=== PATIENT | female | born 1975 | race Caucasian/White ===

== ENCOUNTER 2017-07-10 08:00 | Inpatient (IN) ==
[2017-07-10] MEDS ORDERED: Famotidine 20 MG/2 ML VIAL IVP PRN ×2 (08:18→08:21)
[2017-07-10] MEDS ORDERED: Naloxone 0.4 MG/ML INJ IVP PRN ×2 (08:18→08:21)
[2017-07-10] MEDS ORDERED: Ondansetron 4 MG/2 ML VIAL IVP PRN (08:21)
[2017-07-10] MEDS ORDERED: *HR* Nalbuphine 20 MG/ML AMPUL IVP PRN (08:21)
--- NOTE | 2017-07-10 08:35 | OB/GYN History & Physical ---
Date of Encounter: 07/10/17 Time of Encounter: 08:25 Assessment and Plan (1) and not yet delivered in third trimester Current visit: Yes Status: Acute (2) 39 weeks gestation of Current visit: Yes Status: Acute (3) Advanced maternal age (AMA), 40 years or greater Current visit: Yes Status: Acute (4) Gestational hypertension Current visit: Yes Status: Acute Order PIH labs Qualifiers: Trimester: third trimester Qualified Code(s): O13.3 - Gestational [ -induced] hypertension without significant proteinuria, third trimester (5) Gestational diabetes mellitus (GDM) controlled on oral hypoglycemic drug Current visit: Yes Status: Acute Qualifiers: Trimester: third trimester Qualified Code(s): O24.415 - Gestational diabetes mellitus in , controlled by oral hypoglycemic drugs (6) Elective induction of labor planned Current visit: Yes Status: Acute We will induce with the Leo catheter and vaginal Cytotec plan is to anticipate vaginal delivery History of Present Illness HPI: Ms. Kitchen is a 41 year old female 3 para 1011 at 39-2/7 weeks by last menstrual period equal to a 9-3/7 week ultrasound who presented for induction of labor secondary to term with advanced maternal age and gestational hypertension and gestational diabetes. Patient had an abnormal 3 hour Glucola and has been on a diabetic diet and was started on metformin at that time due to elevated fastings. Since starting the medication her blood sugars have been more stable. Patient is beginning twice a week NSTs are reactive with no contractions. Lastly patient blood pressure was noted to be elevated we did do PIH labs those were within normal limits. She was asymptomatic at that time. Did inform her once we got it to term did go ahead and deliver her due to the advanced maternal age diabetes and now gestational hypertension. She denies any leaking of fluid, having good movement not feeling any contractions. Patient has been doing home blood pressures have been stable and her blood sugars have been stable fasting this morning was 88. Patient is Rh+, rubella positive, GBS negative Past Med Surg Social Fam HX - Past Medical History Source: patient, obtained from family Medical history: kidney stones, other (Gestational diabetes) Psychiatric history: no psych history - Past Surgical History Surgical History: other (Lithotripsy, stent in kidney, suction dilatation curettage) - Social History Smoking Status: Never smoker Smokeless Tobacco Status: No Alcohol use: none Drug use: none Occupational status: employed Current living situation: Home - Independent Activity Level: Independent ambulation Recent Out of Country Travel Within the Last 8 Weeks: No Exposure or Possible Exposure to Illness During Travel: No - Additional Family History Additional family history: Family history noncontributory Obstetrical History - Pregnancies : 3 Para: 1 Term: 1 : 0 Ab's: 1 Livin Review of System OB All systems PM: reviewed and no additional remarkable complaints except as stated Exam - Constitutional Constitutional: well developed, well nourished, no acute distress, average body habitus - HEENT HEENT: EOMI, PERRL - Neck Neck exam: full ROM - Lungs Respiratory exam: CTAB - Cardiovascular Cardiovascular exam: RRR - Abdomen Abdomen: Present: bowel sounds normal, gravid - Extremities Extremities exam: calf tenderness Results All other labs normal. - VTE Reasons for not Prescribing Prophylaxis: Treatment not Indicated - Low risk for VTE
[2017-07-10 08:46] LABS: Basophils % 0.2 %; Eosinophils % 0.4 %; Hematocrit 35.3 % (35.3-44.9); Immature Granulocytes % 0.8 % (0-4); Lymphocytes # 1.2 K/mcL (0.6-4.6); Lymphocytes % 13.7 %; Mean Corpuscular Hemoglobin 30.9 pg (28.0-33.3); Mean Platelet Volume 10.1 fL (9.4-12.4); Monocytes # 0.6 K/mcL (0.0-1.3); Monocytes % 6.3 %; Neutrophils # 7.1 K/mcL (1.6-8.9); Platelet Count 253 K/mcL (140-400); Red Blood Count 3.88 M/mcL (3.82-4.97); Red Cell Distribution Width 12.8 % (11.5-14.5); Segmented Neutrophils % 78.6 %
[2017-07-10 08:52] LABS: Amphetamine Screen,Urine Negative ng/mL (Cutoff=1000); Barbiturate Screen,Urine Negative ng/mL (Cutoff=200); Benzodiazepines Screen,Urine Negative ng/mL (Cutoff=200); Cannabinoid Screen,Urine Negative ng/mL (Cutoff = 50); Cocaine Screen,Urine Negative ng/mL (Cutoff= 300); Opiate Screen,Urine Negative ng/mL (Cutoff=300); Phencyclidine Screen,Urine Negative ng/mL (Cutoff=25)
[2017-07-10 08:59] LABS: Alanine Aminotransferase 14 Units/L (7-52); Aspartate Amino Transferase 13 Units/L (13-39); BUN/Creatinine Ratio 19 (6-26); Blood Urea Nitrogen 13 mg/dL (6-20); Lactate Dehydrogenase 125 Units/L (140-271); Uric Acid 3.6 mg/dL (2.3-7.6); eGFR For African Americans > 60 (> 60); eGFR For Non-African Americans > 60 (> 60)
[2017-07-10] MEDS ORDERED: miSOPROStol 25 MCG TABLET VG SCH ×2 (09:00→12:00)
[2017-07-10] MEDS: Ringers Solution, Lactated 1,000 ML IVC SCH ×2 (09:10→13:36)
--- NOTE | 2017-07-10 09:28 | OB Labor Progress Note ---
Date of Encounter: 07/10/17 Time of Encounter: 09:20 Labor Progress Note - Subjective Subjective: Patient still comfortable - Cervix Cervix: 2-3/80/-2 jensen catheter placed and 25 g Cytotec placed in the posterior fornix - Heart Tones Heart Tones: heart tones 140s reactive - Brigantine Brigantine: occ contractions noted - Plan Plan: Anticipate vaginal delivery
[2017-07-10] MEDS ORDERED: *HR* Ropivacaine/PF 0.2% 10 ML AMPUL ONE (12:55)
[2017-07-10] MEDS ORDERED: Epidural Premix (fent/bupiv) 110 ML EP ONE (12:55)
[2017-07-10] MEDS ORDERED: *HR* FentaNYL (PF) 100 MCG/2 ML VIAL ONE (12:57)
[2017-07-10] MEDS ORDERED: *HR* Ropivacaine/PF 0.2% 10 ML AMPUL EP ONE (13:33)
[2017-07-10] MEDS ORDERED: *HR* FentaNYL (PF) 100 MCG/2 ML VIAL EP ONE (13:33)
[2017-07-10] MEDS ORDERED: EPHEDrine 50 MG/ML VIAL IVP PRN (13:33)
--- NOTE | 2017-07-10 13:36 | Anesthesia Evaluation PreOp ---
Date of Encounter: 07/10/17 Time of Encounter: 13:34 - Past History Planned Operation: adrianne Cardiac History: Denies any Significant Hx Pulmonary History: Denies Any Significant HX GAMING MANAGER History: Denies Any Significant HX Other Medical History: Renal (lithiasis), Diabetes Type II (gestational) Anesthesia History: No Prior Anesthetic Complications, Past Anesthesia (renal lithiasis) : Yes (, 39 weeks) Alcohol Use: none Drug use: none Medications and Allergies 3 Allergy/AdvReac Type Severity Reaction Status Date / Time No Known Allergies Allergy Verified 07/10/17 08:56 - Meds/Allergy Pre-op Review Medications Reviewed: Yes Allergies Reviewed: Yes Beta Blockers on Current Med List: No Anesthesia Results - Labs 07/10/17 08:30 07/10/17 08:33 Anesthesia Exam O2 Sat Height 1.63 m Weight 77.7 kg 128/81 Height: 64 Weight: 77 - HEENT Pupil (Motor): Pupils equal Mallampati: II Teeth: Normal Oral Opening: Greater than 3 - GAMING MANAGER LOC: Oriented GAMING MANAGER Motor: Normal RUE, Normal LUE, Normal RLE, Normal LLE, Normal Face GAMING MANAGER Sensory: Normal: RUE, LUE, RLE, LLE, Face - Cardiac Rhythm: Regular Murmur: None JVD: No Carotid Bruit: No - Pulmonary Breath Sounds: bilateral Clear Respiratory Effort: Symmetrical Anesthesia Assess/Plan ASA Score: 2 Modified [place] Scale for Level of Consciousness: Cooperative, oriented, and tranquil Anesthetic Plan: Regional Monitoring Plan: Standard Monitors
--- NOTE | 2017-07-10 13:40 | Anesthesia Procedures ---
Date of Encounter: 07/10/17 Time of Encounter: 13:37 Procedures: Anesthesia - Epidural/Spinal Patient ID/Chart reviewed: Yes Patient examined: Yes OB Eval: Gestational age: 39 OB Eval: : 3 OB Eval: Hx Para: 1 OB Eval: Dilated at (cm): 4 OB Eval: Contractions: Non-stressed pattern Consent Obtained: Yes Supplemental Oxygen: None/Room Air Site Prep: Aseptic Technique Patient position: upright Local Anesthetic: Lidocaine 1% Amount of Local Anesthetic used: 2 Touhy Needle Gauge: 18 Touhy Needle Depth (cm): 4 Catheter Depth at Skin (cm): 10 Test Dose (1.5% Lido + Epi): Volume given (mls): 3 Test Dose Result: Negative Loading Dose: Fentanyl (mcg): 100 Loading Dose: Other: 6cc 0.2% ropivicaine, 2cc nss Loading Dose Administered: Thru Touhy Needle Infusion Med: 0.125% Bupivacaine w/ 2 mcg/ml Fentanyl Infusion Rate (mls/hr): [address]: Tegaderm Interspace Used: L3-L4 Loss of Resistance (SHANE): Yes Blood: No CSF: No Paresthesia: No
[2017-07-10] MEDS ORDERED: Epidural Premix (fent/bupiv) 110 ML EP SCH (13:45)
--- NOTE | 2017-07-10 13:56 | OB Labor Progress Note ---
Date of Encounter: 07/10/17 Time of Encounter: 13:50 Labor Progress Note - Subjective Subjective: Patient's very comfortable after her epidural - Cervix Cervix: 5/80/0 AROM clear fluid - Heart Tones Heart Tones: heart tones 140s reactive - Rayne Rayne: Contractions every 2 minutes - Plan Plan: Anticipate normal spontaneous vaginal delivery
[2017-07-10] MEDS ORDERED: Oxytocin 20 units/ LR 1000 mL 20 UNIT/1,000 ML BAG IVC ONE (17:01)
[2017-07-10] MEDS ORDERED: Oxytocin 20 units/ LR 1000 mL 20 UNIT/1,000 ML BAG IVC SCH ×2 (17:15→19:50)
--- NOTE | 2017-07-10 17:25 | OB/GYN Procedure Note ---
Delivery - Delivery Date: 07/10/17 Provider: Ravinder Balderas Intrapartum events: none Delivery induction: jensen, misoprostol Delivery augmentation: rupture of membranes Delivery monitor: external FHT, external uterine Anesthesia: epidural Estimated Blood Loss: 100 - Infant (s) A Delivery Date: 07/10/17 Delivery Time: 16:57 Presentation: vertex Position: JOSE Route of delivery: Gender: Female Viability: Viable Pounds: 6 Ounces: 10 Weight Gram: 3.015 kg at 1 minute: 8 at 5 mins: 9 Shoulder Dystocia: not encountered Specimens collected: cord blood Placenta: spontaneous Cord: nuchal cord, nuchal reduced - Repair Episiotomy: none Laceration Description: Perineal - 2nd Degree - Complications Delivery complications: none Delivery comments: Patient is a 41-year-old 3 para 1011 at 39-3/7 weeks she was brought in for induction of labor secondary to advanced maternal age, gestational hypertension, gestational diabetes. Patient was diagnosed as a gestational diabetic we had to start her on oral hypoglycemics to get her fastings under control. She has been getting twice weekly NSTs have all been reactive. Patient last week started have elevated blood pressures PIH labs were all normal and she was scheduled for an induction. Blood pressures at home have all been stable. She reported to labor and delivery where she was noted to be 2 -3 cm Jensen catheter was placed and Cytotec was placed vaginally. Jensen fell out within an hour she received an epidural she was artificially ruptured when she was 5 cm. Patient progressed rapidly within triage she was complete patient pushed approximately 15 minutes delivering a viable female in right occiput anterior presentation at 1657. There was a nuchal 1 loose and reduced, there was no meconium, infant was bulb suctioned on the abdomen. Apgars were 8 at 1 minute, 9 at 5 months, weight was 6 lbs. 10 oz. 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 She had a second-degree perineal laceration repaired with 3-0 Vicryl in usual fashion. Cervix and vagina was visualized intact. She will be observed 2 hours before being taken to the floor - Disposition Mom disposition: stable in LDR disposition: stable in LDR
[2017-07-10] MEDS ORDERED: *HR* HYDROcodone/Acet 5/325 mg TABLET PO PRN (19:50)
[2017-07-10] MEDS ORDERED: Measles/Mumps/Rubella Vacc 0.5 ML VIAL SQ PRN (19:50)
[2017-07-10] MEDS ORDERED: Acetaminophen 325 MG TABLET PO PRN (19:50)
[2017-07-11] MEDS: Ibuprofen 600 MG TABLET PO PRN ×2 (02:07→11:01)
[2017-07-11 07:47] LABS: Basophils % 0.3 %; Eosinophils # 0.1 K/mcL (0.0-0.6); Eosinophils % 0.7 %; Hematocrit 29.9 % (35.3-44.9); Immature Granulocytes % 0.8 % (0-4); Lymphocytes # 1.6 K/mcL (0.6-4.6); Lymphocytes % 15.5 %; Mean Corpuscular HGB Conc 34.8 g/dL (31.6-35.5); Mean Platelet Volume 10.4 fL (9.4-12.4); Monocytes # 0.6 K/mcL (0.0-1.3); Monocytes % 6.4 %; Neutrophils # 7.6 K/mcL (1.6-8.9); Platelet Count 217 K/mcL (140-400); Red Blood Count 3.25 M/mcL (3.82-4.97); Red Cell Distribution Width 12.9 % (11.5-14.5); Segmented Neutrophils % 76.3 %
[2017-07-11 08:03] LABS: Hemoglobin 10.4 g/dL (11.5-15.4)
--- NOTE | 2017-07-11 08:38 | Discharge Summary ---
Date of Encounter: 07/11/17 Time of Encounter: 09:20 - Discharge Diagnosis (1) 39 weeks gestation of Priority: Primary Status: Acute (2) Advanced maternal age (AMA), 40 years or greater Priority: Secondary Status: Acute (3) Gestational hypertension Priority: Secondary Status: Acute Qualifiers: Trimester: third trimester Qualified Code(s): O13.3 - Gestational [ -induced] hypertension without significant proteinuria, third trimester (4) Gestational diabetes mellitus (GDM) controlled on oral hypoglycemic drug Priority: Secondary Status: Acute Qualifiers: Trimester: third trimester Qualified Code(s): O24.415 - Gestational diabetes mellitus in , controlled by oral hypoglycemic drugs (5) Elective induction of labor planned Priority: Secondary Status: Acute (6) anemia Priority: Secondary Status: Acute - Discharge Medications Prescriptions: Acetaminophen [Tylenol] 650 mg PO Q6HR PRN #40 tablet PRN Reason: Mild Pain Ibuprofen [Motrin] 600 mg PO Q6HR PRN #40 tablet PRN Reason: Cramping Docusate [Colace] 100 mg PO BID #10 capsule Home Medications: Acetaminophen [Tylenol] 650 mg PO Q6HR PRN #40 tablet 07/11/17 [Rx] Docusate [Colace] 100 mg PO BID #10 capsule 07/11/17 [Rx] Ibuprofen [Motrin] 600 mg PO Q6HR PRN #40 tablet 07/11/17 [Rx] Vit/FA 1 each PO DAILY tablet 07/11/17 [Rx] Allergies/Adverse Reactions: 3 Allergy/AdvReac Type Severity Reaction Status Date / Time No Known Allergies Allergy Verified 07/10/17 08:56 Data Procedures and tests throughout hospitalization: Laboratory Tests 07/10/17 07/10/17 07/10/17 08:30 08:30 08:30 WBC 9.1 RBC 3.88 Hgb 12.0 Hct 35.3 MCV 91.0 MCH 30.9 MCHC 34.0 RDW 12.8 Plt Count 253 MPV 10.1 Immature Gran % 0.8 Seg Neutrophils % 78.6 Lymphocytes % 13.7 Monocytes % 6.3 Eosinophils % 0.4 Basophils % 0.2 Neutrophils # 7.1 Lymphocytes # 1.2 Monocytes # 0.6 Eosinophils # 0.0 Basophils # 0.0 BUN 13 Creatinine 0.69 Est GFR ( Amer) > 60 Est GFR (Non-Af Amer) > 60 BUN/Creatinine Ratio 19 Glucose POC Glucose Uric Acid 3.6 AST 13 ALT 14 Lactate Dehydrogenase 125 L Urine Opiates Screen Negative Ur Barbiturates Screen Negative Ur Phencyclidine Scrn Negative Ur Amphetamines Screen Negative U Benzodiazepines Scrn Negative Urine Cocaine Screen Negative U Marijuana (THC) Screen Negative 07/10/17 07/10/17 07/11/17 08:33 12:36 06:39 WBC 10.0 RBC 3.25 L Hgb 10.4 L D Hct 29.9 L MCV 92.0 MCH 32.0 MCHC 34.8 RDW 12.9 Plt Count 217 MPV 10.4 Immature Gran % 0.8 Seg Neutrophils % 76.3 Lymphocytes % 15.5 Monocytes % 6.4 Eosinophils % 0.7 Basophils % 0.3 Neutrophils # 7.6 Lymphocytes # 1.6 Monocytes # 0.6 Eosinophils # 0.1 Basophils # 0.0 BUN Creatinine Est GFR ( Amer) Est GFR (Non-Af Amer) BUN/Creatinine Ratio Glucose 113 H POC Glucose 91 H Uric Acid AST ALT Lactate Dehydrogenase Urine Opiates Screen Ur Barbiturates Screen Ur Phencyclidine Scrn Ur Amphetamines Screen U Benzodiazepines Scrn Urine Cocaine Screen U Marijuana (THC) Screen Labs on day of discharge: Labs from last 24 hours 07/11/17 07/10/17 07/10/17 06:39 12:36 08:33 WBC 10.0 RBC 3.25 L Hgb 10.4 L D Hct 29.9 L MCV 92.0 MCH 32.0 MCHC 34.8 RDW 12.9 Plt Count 217 MPV 10.4 Immature Gran % 0.8 Seg Neutrophils % 76.3 Lymphocytes % 15.5 Monocytes % 6.4 Eosinophils % 0.7 Basophils % 0.3 Neutrophils # 7.6 Lymphocytes # 1.6 Monocytes # 0.6 Eosinophils # 0.1 Basophils # 0.0 BUN Creatinine Est GFR ( Amer) Est GFR (Non-Af Amer) BUN/Creatinine Ratio Glucose 113 H POC Glucose 91 H Uric Acid AST ALT Lactate Dehydrogenase Urine Opiates Screen Ur Barbiturates Screen Ur Phencyclidine Scrn Ur Amphetamines Screen U Benzodiazepines Scrn Urine Cocaine Screen U Marijuana (THC) Screen 07/10/17 07/10/17 07/10/17 08:30 08:30 08:30 WBC 9.1 RBC 3.88 Hgb 12.0 Hct 35.3 MCV 91.0 MCH 30.9 MCHC 34.0 RDW 12.8 Plt Count 253 MPV 10.1 Immature Gran % 0.8 Seg Neutrophils % 78.6 Lymphocytes % 13.7 Monocytes % 6.3 Eosinophils % 0.4 Basophils % 0.2 Neutrophils # 7.1 Lymphocytes # 1.2 Monocytes # 0.6 Eosinophils # 0.0 Basophils # 0.0 BUN 13 Creatinine 0.69 Est GFR ( Amer) > 60 Est GFR (Non-Af Amer) > 60 BUN/Creatinine Ratio 19 Glucose POC Glucose Uric Acid 3.6 AST 13 ALT 14 Lactate Dehydrogenase 125 L Urine Opiates Screen Negative Ur Barbiturates Screen Negative Ur Phencyclidine Scrn Negative Ur Amphetamines Screen Negative U Benzodiazepines Scrn Negative Urine Cocaine Screen Negative U Marijuana (THC) Screen Negative Date of admission: 07/10/17 08:10 Primary care physician: Mika Pierre MD Consults: 07/10/17 19:50 Consult to Academic Services Coordinator [CONS] Routine Comment: Vaginal delivery, consult needed Discharging clinician: Justine Thurston Anticipated date of discharge: 07/11/17 - Patient Status Disposition: Home, Self-Care Condition: Good Functional capacity at discharge: independent ambulation Overall status at discharge: patient is progressing back to baseline - Discharge Instructions Follow Up With: Miak Pierre MD [Primary Care Provider] - Ravinder Balderas DO [Partnered Physician] - Additional Instructions: Follow-up with Dr. Balderas in 4 weeks. - Diet and Activity Activity: increase activity as tolerated Diet: advance to your usual diet Hospital Course Reason for admission: induction of labor Delivery: Episiotomy: none Laceration: 2nd degree Other procedures: none complications: none Discharge diagnosis: IUP at term delivered baby: female Hospital course: - Delivery Date: 07/10/17 Provider: Ravinder Balderas Intrapartum events: none Delivery induction: jensen, misoprostol Delivery augmentation: rupture of membranes Delivery monitor: external FHT, external uterine Anesthesia: epidural Estimated Blood Loss: 100 - Infant (s) A Delivery Date: 07/10/17 Delivery Time: 16:57 Presentation: vertex Position: JOSE Route of delivery: Gender: Female Viability: Viable Pounds: 6 Ounces: 10 Weight Gram: 3.015 kg at 1 minute: 8 at 5 mins: 9 Shoulder Dystocia: not encountered Specimens collected: cord blood Placenta: spontaneous Cord: nuchal cord, nuchal reduced - Repair Episiotomy: none Laceration Description: Perineal - 2nd Degree - Complications Delivery complications: none Delivery comments: Patient is a 41-year-old 3 para 1011 at 39-3/7 weeks she was brought in for induction of labor secondary to advanced maternal age, gestational hypertension, gestational diabetes. Patient was diagnosed as a gestational diabetic we had to start her on oral hypoglycemics to get her fastings under control. She has been getting twice weekly NSTs have all been reactive. Patient last week started have elevated blood pressures PIH labs were all normal and she was scheduled for an induction. Blood pressures at home have all been stable. She reported to labor and delivery where she was noted to be 2 -3 cm Jensen catheter was placed and Cytotec was placed vaginally. Jensen fell out within an hour she received an epidural she was artificially ruptured when she was 5 cm. Patient progressed rapidly within triage she was complete patient pushed approximately 15 minutes delivering a viable female infant in right occiput anterior presentation at 1657. There was a nuchal 1 loose and reduced, there was no meconium, infant was bulb suctioned on the abdomen. Apgars were 8 at 1 minute, 9 at 5 months, infant weight was 6 lbs. 10 oz. 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 She had a second-degree perineal laceration repaired with 3-0 Vicryl in usual fashion. Cervix and vagina was visualized intact. She will be observed 2 hours before being taken to the floor : patient's blood pressures have been well controlled. Patient does have anemia, dropped from 12.0 to 10.4 after delivery. Stable, asymptomatic. - Disposition Mom disposition: stable and ready for discharge. Time Attestation: Total time spent providing and/or coordinating discharge services: Time Spent: Less than 30 minutes Exam - Constitutional Vitals: Temp Pulse Resp BP Pulse Ox 98.3 F 79 16 112/74 97 07/11/17 08:19 07/11/17 08:19 07/11/17 08:19 07/11/17 08:19 07/11/17 08:19 General appearance IM: pleasant, no acute distress, answers questions appropriately - Respiratory Respiratory exam: Present: CTAB - Cardiovascular Cardiovascular exam IM: Present: RRR - GI/Abdominal GI/Abdominal exam IM: soft - Uterine Tone: Firm Uterus Position: 3 Fingers Below Umbilicus - Extremities Exam Extremities exam IM: Present: normal inspection - Neurological Exam Neurological exam: no focal deficits - Attending Attestation I examined this patient and my medical decision-making was reviewed with the Resident Physician. I agree with the documented findings, disposition and treatment plan as described. Rani Thurston CNM
[2017-07-11] MEDS ORDERED: Prenatal Vit/FA 1 EACH TABLET PO SCH ×2 (09:00)
[2017-07-11 16:30] VITALS: BP 116/72
== END 2017-07-11 18:15 | disposition home or self-care (01) | DRG 775 ==
LOC: 1NENULAB 08:10 → 1NENUOBS 20:48
PROVIDERS: ADMIT Obstetrics & Gynecology; ATTEND Obstetrics & Gynecology